=== PATIENT | male | born 1960 | race African-American/Black ===

== ENCOUNTER 2018-05-16 10:03 | Inpatient (IN) | payer OTHER ==
[2018-05-16 11:27] VITALS: BMI 18.9
--- NOTE | 2018-05-16 12:02 | HP ---
CIWA Score - CIWA Score Nausea/Vomitin-Mild Nausea/No Vomiting Muscle Tremors: 2 Anxiety: 2 Agitation: 1-Slight > Activity Paroxysmal Sweats: 2 Orientation: 1-Uncertain about Date Tacttile Disturbances: 1-Very Mild Itch/Numbness Auditory Disturbances: 0-None Visual Disturbances: 0-None Headache: 2-Mild CIWA-Ar Total Score: 12 Admission ROS S - HPI Chief Complaint: ETOH WITHDRAWAL SYMPTOMS. Allergies/Adverse Reactions: Allergies Allergy/AdvReac Type Severity Reaction Status Date / Time ibuprofen [From Motrin] Allergy Severe Hives Verified 05/16/18 11:43 History of Present Illness: PATIENT PRESENTS WITH ETOH WITHDRAWAL SYMPTOMS. PATIENT STATES HE STARTED DRINKING AT AGE 14. DRINKS UP TO 7 PARISH SIZE CANS OF BEER DAILY WITH INTERMITTENT LIQUOR USE. LAST DRINK WAS THIS MORNING. DENIES HX OF SEIZURES. LONGEST PERIOD OF SOBRIETY 6 YEARS. PATIENT ALSO SMOKES CRACK/COCAINE SINCE 1984. SMOKES UP TO 60 DOLLARS DAILY. PATIENT LAST SMOKED THIS MORNING. PMH +HIV AND ASTHMA. NON-COMPLIANT WITH MEDICATION. DENIES SI/HI AND SUICIDE ATTEMPTS. Exam Limitations: No Limitations - Ebola screening Have you traveled outside of the country in the last 21 days: No Have you had contact with anyone from an Ebola affected area: No Have you been sick,other than usual withdrawal symptoms: No Do you have a fever: No - Review of Systems Constitutional: Chills, Night Sweats, Changes in sleep, Unexplained wgt Loss EENT: reports: No Symptoms Reported Respiratory: reports: No Symptoms reported Cardiac: reports: No Symptoms Reported GI: reports: Nausea, Poor Appetite, Poor Fluid Intake, Abdominal cramping : reports: No Symptoms Reported Musculoskeletal: reports: Joint Pain, Muscle Pain Integumentary: reports: Sweating Neuro: reports: Headache, Tremors Endocrine: reports: Unexplained Weight Loss Hematology: reports: No Symptoms Reported Psychiatric: reports: Anxious, Depressed Patient History - Patient Medical History Hx Anemia: No Hx Asthma: Yes Hx Chronic Obstructive Pulmonary Disease (COPD): No Hx Cancer: No Hx Cardiac Disorders: No Hx Congestive Heart Failure: No Hx Hypertension: No Hx Hypercholesterolemia: No Hx Pacemaker: No HX Cerebrovascular Accident: No Hx Seizures: No Hx Dementia: No Hx Diabetes: No Hx Gastrointestinal Disorders: No Hx Liver Disease: No Hx Genitourinary Disorders: No Hx Sexually Transmitted Disorders: No Hx Renal Disease (ESRD): No Hx Thyroid Disease: No Hx Human Immunodeficiency Virus (HIV): Yes (NON-COMPLIANT) Hx Hepatitis C: No Hx Depression: No Hx Suicide Attempt: No Hx Bipolar Disorder: No Hx Schizophrenia: No - Patient Surgical History Past Surgical History: No - PPD History Previous Implant?: Yes Documented Results: Positive w/o proof Implanted On Prior [facility] Admission?: No PPD to be Administered?: No - Smoking Cessation Smoking history: Current every day smoker Have you smoked in the past 12 months: Yes Aproximately how many cigarettes per day: 12 Hx Chewing Tobacco Use: No Initiated information on smoking cessation: Yes 'Breaking Loose' booklet given: 05/16/18 - Substance & Tx. History Hx Alcohol Use: Yes Hx Substance Use: Yes Substance Use Type: Alcohol, Cocaine Hx Substance Use Treatment: No - Substances Abused Alcohol Route: Oral Frequency: Daily Amount used: 8 cans of bud margaritas Age of first use: 14 Date of Last Use: 05/16/18 Crack Route: Smoking Frequency: Daily Amount used: $60 Age of first use: 25 Date of Last Use: 05/16/18 Family Disease History - Family Disease History Family Disease History: CA: Mother (OVARIAN,UTERINE. ALIVE) Admission Physical Exam [facility] - Vital Signs Vital Signs: Vital Signs - 24 hr 05/16/18 11:24 Temperature 98.1 F Pulse Rate 96 H Respiratory 20 Rate Blood Pressure 123/67 - Physical General Appearance: Yes: No Apparent Distress, Appropriately Dressed, Thin, Tremorous, Sweating, Anxious HEENTM: Yes: EOMI, Hearing grossly Normal, Normal ENT Inspection, Normocephalic , Normal Voice, NICOLE, Pharynx Normal Respiratory: Yes: Chest Non-Tender, Lungs Clear, Normal Breath Sounds, No Respiratory Distress, No Accessory Muscle Use Neck: Yes: No masses,lesions,Nodules, Supple Breast: Yes: Breast Exam Deferred Cardiology: Yes: Regular Rhythm, Regular Rate, S1, S2 Abdominal: Yes: Normal Bowel Sounds, Non Tender, Flat, Soft Genitourinary: Yes: Within Normal Limits Back: Yes: Normal Inspection, Muscle Spasm Musculoskeletal: Yes: Within Normal Limits, full range of Motion, Gait Steady, Muscle Pain Extremities: Yes: Normal Capillary Refill, Normal Inspection, Normal Range of Motion, Non-Tender, Tremors Neurological: Yes: 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 II-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 NML intact, Alert, Motor Strength 5/5, Normal Mood /Affect, Numbness, Depressed Affect Integumentary: Yes: Normal Color, Warm, Moist Lymphatic: Yes: Within Normal Limits - Diagnostic (1) Alcohol dependence with uncomplicated withdrawal Current Visit: Yes Status: Acute (2) Weight loss Current Visit: Yes Status: Acute (3) HIV (human immunodeficiency virus infection) Current Visit: Yes Status: Chronic (4) Cocaine dependence Current Visit: Yes Status: Acute Qualifiers: Substance use status: uncomplicated Qualified Code(s): F14.20 - Cocaine dependence, uncomplicated (5) Asthma Current Visit: Yes Status: Acute Qualifiers: Asthma severity: mild Asthma complication type: unspecified Cleared for Admission S - Detox or Rehab S Level of Care: Medically Managed Detox Regimen/Protocol: Librium S Breath Alcohol Content Breath Alcohol Content: 0.097 Urine Drug Screen - Results Drug Screen Negative: No Urine Drug Screen Results: IVORY-Cocaine
[2018-05-16] MEDS ORDERED: MAGNESIUM HYDROX 2400MG/30ML ORAL SUSPENSION 30 ML CUP PO PRN (12:11)
[2018-05-16] MEDS ORDERED: MAGNESIUM CITRATE 300 ML BOTTLE PO PRN (12:11)
[2018-05-16] MEDS ORDERED: LOPERAMIDE HCL 2 MG CAPSULE PO PRN (12:11)
[2018-05-16] MEDS ORDERED: P-EPHED 60MG/TRIPROLIDI 2.5MG TABLET PO PRN (12:11)
[2018-05-16] MEDS ORDERED: MAG HYDROX/AL HYDROX/SIMETH 30 ML UNIT-DOSE CUP PO PRN (12:11)
[2018-05-16] MEDS ORDERED: guaiFENesin/D-METHORPHAN HB 10 ML UNIT-DOSE CUPS PO PRN (12:11)
[2018-05-16] MEDS ORDERED: hydrOXYzine PAMOATE 50 MG CAPSULE (FP) PO PRN (12:11)
[2018-05-16] MEDS ORDERED: MENTHOL/PHENOL 1 EACH UD MM PRN (12:11)
[2018-05-16] MEDS ORDERED: ACETAMINOPHEN 325 MG TABLET (FP) PO PRN (12:11)
[2018-05-16] MEDS ORDERED: chlordiazePOXIDE HCL 25 MG CAPSULE PO PRN (14:00)
[2018-05-16 14:55] LABS: HEMATOCRIT 40.4 % (35.4-49); HEMOGLOBIN 13.6 GM/dL (11.7-16.9); MCH 30.3 pg (25.7-33.7); MCHC 33.6 g/dl (32.0-35.9); MEAN CELL VOLUME 90.1 fl (80-96); MEAN PLT VOLUME 7.4 fl (7.5-11.1); PLATELET COUNT 244 K/MM3 (134-434); RBC 4.49 M/mm3 (4.00-5.60); RDW 13.9 % (11.9-15.9)
[2018-05-16 14:59] LABS: URINE APPEARANCE CLEAR; URINE BILIRUBIN NEGATIVE (<2.0 mg/dL); URINE COLOR YELLOW; URINE GLUCOSE (UA) NEGATIVE (NEGATIVE); URINE KETONE NEGATIVE (NEGATIVE); URINE LEUK ESTERASE NEGATIVE (NEGATIVE); URINE NITRITE NEGATIVE (NEGATIVE)
[2018-05-16 15:00] LABS: ALBUMIN 3.3 g/dl (3.4-5.0); ANION GAP 6 (8-16); BLOOD UREA NITROGEN 9 mg/dL (7-18); CALCIUM 8.9 mg/dL (8.5-10.1); CHLORIDE 106 mmol/L (98-107); CO2 31 mmol/L (21-32); GLUCOSE,RANDOM 88 mg/dL (74-106); POTASSIUM 3.9 mmol/L (3.5-5.1); SODIUM 143 mmol/L (136-145)
[2018-05-16 15:02] LABS: URINE PROTEIN 1+ (NEGATIVE)
[2018-05-16 15:04] LABS: ALK PHOS 114 U/L (45-117); BILIRUBIN,TOTAL 0.3 mg/dL (0.2-1.0); CREATININE 1.1 mg/dL (0.7-1.3); SGOT/AST 27 U/L (15-37); SGPT/ALT 22 U/L (12-78); TOT PROT 7.9 g/dl (6.4-8.2)
--- NOTE | 2018-05-16 15:07 | EKG ---
Test Reason : Blood Pressure : / mmHG Vent. Rate : 084 BPM Atrial Rate : 084 BPM P-R Int : 188 ms QRS Dur : 088 ms QT Int : 372 ms P-R-T Axes : 079 074 074 degrees QTc Int : 439 ms NORMAL SINUS RHYTHM NORMAL ECG NO PREVIOUS ECGS AVAILABLE Confirmed by SIOMARA BINGHAM MD ([id number]) on 05/16/2018 3:07:18 PM Referred By: Confirmed By:SIOMARA BINGHAM MD
[2018-05-16 15:30] LABS: EPI CELLS RARE /HPF (FEW); URINE HYALINE CAST 4 /lpf; URINE MUCUS RARE
[2018-05-16] MEDS: chlordiazePOXIDE HCL 25 MG CAPSULE PO SCH ×2 (17:45→22:08)
[2018-05-16] MEDS ORDERED: MELATONIN 5 MG TABLETS PO PRN (22:00)
[2018-05-16] MEDS: THIAMINE HCL 100 MG TABLET (FP) PO SCH (22:08)
[2018-05-17] MEDS: chlordiazePOXIDE HCL 25 MG CAPSULE PO SCH ×4 (05:18→22:25)
[2018-05-17] MEDS: PRENATAL VITAMINS W/ FOLIC ACID TABLET (FP) PO SCH (10:23)
--- NOTE | 2018-05-17 12:33 | PN ---
[facility] CIWA - CIWA Score Nausea/Vomitin-No Nausea/No Vomiting Muscle Tremors: 3 Anxiety: 3 Agitation: 3 Paroxysmal Sweats: 2 Orientation: 0-Oriented Tacttile Disturbances: 2-Mild Itch/Numbness/Burn Auditory Disturbances: 0-None Visual Disturbances: 2-Mild Sensitivity Headache: 0-None Present CIWA-Ar Total Score: 15 S Progress Note (SOAP) Subjective: Chills, Sweating, Tremors, Anxious. Objective: PATIENT A & O X 3, OBSERVED AMBULATING ON UNIT. NO ACUTE DISTRESS. 05/17/18 12:33 Vital Signs Temperature 98 F 05/17/18 09:40 Pulse Rate 93 H 05/17/18 09:40 Respiratory Rate 20 05/17/18 09:40 Blood Pressure 131/75 05/17/18 09:40 O2 Sat by Pulse Oximetry (%) Laboratory Tests 05/16/18 05/16/18 05/16/18 13:00 13:00 13:00 WBC 4.0 RBC 4.49 Hgb 13.6 Hct 40.4 MCV 90.1 MCH 30.3 MCHC 33.6 RDW 13.9 Plt Count 244 MPV 7.4 L Sodium 143 Potassium 3.9 Chloride 106 Carbon Dioxide 31 Anion Gap 6 L BUN 9 Creatinine 1.1 Creat Clearance w eGFR > 60 Random Glucose 88 Calcium 8.9 Total Bilirubin 0.3 AST 27 ALT 22 Alkaline Phosphatase 114 Total Protein 7.9 Albumin 3.3 L Urine Color Yellow Urine Appearance Clear Urine pH 5.0 Ur Specific [place] 1.020 Urine Protein 1+ H Urine Glucose (UA) Negative Urine Ketones Negative Urine Blood Negative Urine Nitrite Negative Urine Bilirubin Negative Urine Urobilinogen 2.0 Ur Leukocyte Esterase Negative Urine WBC (Auto) 1 Urine RBC (Auto) None seen Ur Epithelial Cells Rare Hyaline Casts 4 Urine Mucus Rare LABS NOTED. RPR RESULT PENDING. 05/17/18 12:35 Assessment: 05/17/18 12:34 WITHDRAWAL SYMPTOMS. Plan: CONTINUE DETOX.
[2018-05-17] MEDS ORDERED: AZITHROMYCIN 250 MG TABLET PO ONE (14:04)
--- NOTE | 2018-05-17 15:35 | PN ---
[facility] Progress Note Note: RESULTS OF CXR DONE TODAY (FOR HISTORY OF POSITIVE PPD) NOTED. PATIENT REPORTS THAT HE COMPLETED FULL COURSE OF ANTIBIOTIC TREATMENT FOR TB IN 1992. PATIENT REPORTS OCCASIONAL COUGH (CHRONIC, ONGOING), BUT DENIES CHEST PAIN AND DIZZINESS. PATIENT REPORTS HISTORY OF ASTHMA (MANAGED WITH MDI PRN), BUT DENIES HISTORY OF ANY OTHER KNOWN RESPIRATORY DISEASE. WHEEZING NOTED ON AUSCULTATION OF UPPER LOBE OF RIGHT LUNG. NO OTHER ADVENTITIOUS LUNG SOUNDS AUSCULTATED. ASSESSMENT WBC LEVEL WNL. RE-CHECK CBC TOMORROW AM. AZITHROMYCIN, 500 X 1 TODAY , FOLLOWED BY 250 MG PO DAILY X 4 DAYS ORDERED PROPHYLACTICALLY FOR POSSIBLE RESPIRATORY INFECTION. PATIENT ADVISED TO FOLLOW-UP WITH [employer] DR. JENNIFER COREY ( [facility], [place], [place] AFTER DISCHARGE FROM DETOX UNIT FOR FURTHER MEDICAL EVALUATION OF CXR RESULTS. PATIENT VERBALIZED UNDERSTANDING OF RECOMMENDATIONS. Helen DELGADO NP.
--- NOTE | 2018-05-17 16:35 | CONSULT ---
[facility] Psychiatric Consult - Data Date of interview: 05/17/18 Admission source: [facility] Identifying data: First admission to [facility] for this 57 y/o AA male seeking detox treatment on for alcohol and cocaine (crack) dependence.Patient is single,a father of two adults,domiciled,unemployed and supported on [facility] benefits. Substance Abuse History: Confirmed by the patient in this session.Details in current [facility] report as follows : Smoking history: Current every day smoker. Have you smoked in the past 12 months: Yes. Aproximately how many cigarettes per day: 12. Hx Chewing Tobacco Use: No. Initiated information on smoking cessation: Yes. 'Breaking Loose' booklet given: 05/16/18. - Substance & Tx. History. Hx Alcohol Use: Yes. Hx Substance Use: Yes. Substance Use Type: Alcohol, Cocaine. Hx Substance Use Treatment: No. - Substances Abused. Alcohol. Route: Oral. Frequency: Daily. Amount used: 8 cans of bud margaritas. Age of first use: 14. Date of Last Use: 05/16/18. Crack. Route: Smoking. Frequency: Daily. Amount used: $60. Age of first use: 25. Date of Last Use: 05/16/18 Medical History: Bronchial asthma and HIV infection since 1994.Prescribed HAART medications : chronically non-adherent. Psychiatric History: Patient denies. Physical/Sexual Abuse/Trauma History: Patient denies. Additional Comment: Urine Drug Screen Results: IVORY-Cocaine.Noted. Mental Status Exam - Mental Status Exam Alert and Oriented to: Time, Place, Person Cognitive Function: Good Patient Appearance: Well Groomed Mood: Hopeful, Euthymic Affect: Appropriate, Normal Range Patient Behavior: Fatigued, Appropriate, Cooperative Speech Pattern: Clear, Appropriate Voice Loudness: Normal Thought Process: Intact, Goal Oriented Thought Disorder: Not Present Hallucinations: Denies Suicidal Ideation: Denies Homicidal Ideation: Denies Insight/Judgement: Poor Sleep: Well Appetite: Good Muscle strength/Tone: Normal Gait/Station: Normal Psychiatric Findings - Problem List ([place] 1, 2,3) (1) Alcohol dependence with uncomplicated withdrawal Current Visit: Yes Status: Acute (2) Cocaine dependence Current Visit: Yes Status: Acute Qualifiers: Substance use status: uncomplicated Qualified Code(s): F14.20 - Cocaine dependence, uncomplicated (3) Nicotine dependence Current Visit: Yes Status: Acute - Initial Treatment Plan Initial Treatment Plan: Psychoeducation.Sleep hygiene.Detoxification.Observation.
[2018-05-17] MEDS: THIAMINE HCL 100 MG TABLET (FP) PO SCH (22:25)
[2018-05-18] MEDS: chlordiazePOXIDE HCL 25 MG CAPSULE PO SCH ×2 (05:51→10:23)
[2018-05-18 09:33] LABS: EOS % 5.4 % (0-4.5); HEMATOCRIT 40.6 % (35.4-49); HEMOGLOBIN 13.4 GM/dL (11.7-16.9); LYMPH % 21.6 % (8-40); MCH 29.9 pg (25.7-33.7); MEAN CELL VOLUME 90.6 fl (80-96); MEAN PLT VOLUME 7.4 fl (7.5-11.1); MONO % 12.6 % (3.8-10.2); NEUT % 59.4 % (42.8-82.8); PLATELET COUNT 211 K/MM3 (134-434); RBC 4.48 M/mm3 (4.00-5.60)
[2018-05-18] MEDS: ALBUTEROL SO4 8 GM HFA INHALER IH PRN ×2 (10:23→14:09)
[2018-05-18] MEDS: AZITHROMYCIN 250 MG TABLET PO SCH (10:23)
[2018-05-18] MEDS: PRENATAL VITAMINS W/ FOLIC ACID TABLET (FP) PO SCH (10:23)
--- NOTE | 2018-05-18 12:00 | PN ---
[facility] CIWA - CIWA Score Nausea/Vomitin-No Nausea/No Vomiting Muscle Tremors: 2 Anxiety: 3 Agitation: 3 Paroxysmal Sweats: 2 Orientation: 2-Disoriented Date<2 days Tacttile Disturbances: 2-Mild Itch/Numbness/Burn Auditory Disturbances: 0-None Visual Disturbances: 0-None Headache: 0-None Present CIWA-Ar Total Score: 14 BHS Progress Note (SOAP) Subjective: Body Aches, Anxious, Sweating. Objective: PATIENT A & O X 3, OBSERVED AMBULATING ON UNIT UNASSISTED. NO ACUTE DISTRESS. PATIENT DENIES CHEST PAIN ,SOB, AND DIZZINESS. PATIENT DENIES ANY COUGHING THUS FAR TODAY. 05/18/18 11:57 Vital Signs Temperature 98.1 F 05/18/18 09:04 Pulse Rate 89 05/18/18 09:04 Respiratory Rate 18 05/18/18 09:04 Blood Pressure 116/68 05/18/18 09:04 O2 Sat by Pulse Oximetry (%) Laboratory Tests 05/16/18 05/16/18 05/16/18 13:00 13:00 13:00 WBC 4.0 RBC 4.49 Hgb 13.6 Hct 40.4 MCV 90.1 MCH 30.3 MCHC 33.6 RDW 13.9 Plt Count 244 MPV 7.4 L Absolute Neuts (auto) Neutrophils % Lymphocytes % Monocytes % Eosinophils % Basophils % Nucleated RBC % Sodium 143 Potassium 3.9 Chloride 106 Carbon Dioxide 31 Anion Gap 6 L BUN 9 Creatinine 1.1 Creat Clearance w eGFR > 60 Random Glucose 88 Calcium 8.9 Total Bilirubin 0.3 AST 27 ALT 22 Alkaline Phosphatase 114 Total Protein 7.9 Albumin 3.3 L Urine Color Yellow Urine Appearance Clear Urine pH 5.0 Ur Specific [place] 1.020 Urine Protein 1+ H Urine Glucose (UA) Negative Urine Ketones Negative Urine Blood Negative Urine Nitrite Negative Urine Bilirubin Negative Urine Urobilinogen 2.0 Ur Leukocyte Esterase Negative Urine WBC (Auto) 1 Urine RBC (Auto) None seen Ur Epithelial Cells Rare Hyaline Casts 4 Urine Mucus Rare 05/18/18 07:00 WBC 4.0 RBC 4.48 Hgb 13.4 Hct 40.6 MCV 90.6 MCH 29.9 MCHC 33.0 RDW 14.0 Plt Count 211 MPV 7.4 L Absolute Neuts (auto) 2.4 Neutrophils % 59.4 Lymphocytes % 21.6 Monocytes % 12.6 H Eosinophils % 5.4 H Basophils % 1.0 Nucleated RBC % 0 Sodium Potassium Chloride Carbon Dioxide Anion Gap BUN Creatinine Creat Clearance w eGFR Random Glucose Calcium Total Bilirubin AST ALT Alkaline Phosphatase Total Protein Albumin Urine Color Urine Appearance Urine pH Ur Specific [place] Urine Protein Urine Glucose (UA) Urine Ketones Urine Blood Urine Nitrite Urine Bilirubin Urine Urobilinogen Ur Leukocyte Esterase Urine WBC (Auto) Urine RBC (Auto) Ur Epithelial Cells Hyaline Casts Urine Mucus LABS NOTED. RESULTS OF REPEAT CBC (WBC) NOTED. 05/18/18 11:59 Assessment: 05/18/18 11:58 WITHDRAWAL SYMPTOMS. Plan: CONTINUE DETOX. INCREASE DAILY PO FLUID INTAKE. CONTINUE AZITHROMYCIN.
[2018-05-18] MEDS: chlordiazePOXIDE 5 MG CAPSULE PO SCH ×2 (17:35→22:07)
[2018-05-18] MEDS: THIAMINE HCL 100 MG TABLET (FP) PO SCH (22:08)
[2018-05-18] MEDS: HYDROCORTISONE 0.5% TOPICAL CREAM 30 GM TUBE TP SCH (22:08)
[2018-05-19] MEDS: chlordiazePOXIDE 5 MG CAPSULE PO SCH ×2 (05:50→10:35)
[2018-05-19] MEDS: PRENATAL VITAMINS W/ FOLIC ACID TABLET (FP) PO SCH (10:35)
[2018-05-19] MEDS: HYDROCORTISONE 0.5% TOPICAL CREAM 30 GM TUBE TP SCH ×2 (10:36→22:17)
[2018-05-19] MEDS: AZITHROMYCIN 250 MG TABLET PO SCH (10:36)
--- NOTE | 2018-05-19 12:15 | PN ---
[facility] Progress Note (SOAP) Subjective: Sweating, Body Aches. Objective: PATIENT A & O X 3, OBSERVED AMBULATING ON UNIT. NO ACUTE DISTRESS. PATIENT DENIES CHEST PAIN, SOB, AND DIZZINESS. MILD WHEEZING NOTED ON AUSCULTATION OF LUNGS. 05/19/18 12:15 Vital Signs Temperature 97.6 F 05/19/18 09:49 Pulse Rate 66 05/19/18 09:49 Respiratory Rate 18 05/19/18 09:49 Blood Pressure 115/74 05/19/18 09:49 O2 Sat by Pulse Oximetry (%) Laboratory Tests 05/16/18 05/16/18 05/16/18 13:00 13:00 13:00 WBC 4.0 RBC 4.49 Hgb 13.6 Hct 40.4 MCV 90.1 MCH 30.3 MCHC 33.6 RDW 13.9 Plt Count 244 MPV 7.4 L Absolute Neuts (auto) Neutrophils % Lymphocytes % Monocytes % Eosinophils % Basophils % Nucleated RBC % Sodium 143 Potassium 3.9 Chloride 106 Carbon Dioxide 31 Anion Gap 6 L BUN 9 Creatinine 1.1 Creat Clearance w eGFR > 60 Random Glucose 88 Calcium 8.9 Total Bilirubin 0.3 AST 27 ALT 22 Alkaline Phosphatase 114 Total Protein 7.9 Albumin 3.3 L Urine Color Urine Appearance Urine pH Ur Specific [place] Urine Protein Urine Glucose (UA) Urine Ketones Urine Blood Urine Nitrite Urine Bilirubin Urine Urobilinogen Ur Leukocyte Esterase Urine WBC (Auto) Urine RBC (Auto) Ur Epithelial Cells Hyaline Casts Urine Mucus RPR Titer Nonreactive 05/16/18 05/18/18 13:00 07:00 WBC 4.0 RBC 4.48 Hgb 13.4 Hct 40.6 MCV 90.6 MCH 29.9 MCHC 33.0 RDW 14.0 Plt Count 211 MPV 7.4 L Absolute Neuts (auto) 2.4 Neutrophils % 59.4 Lymphocytes % 21.6 Monocytes % 12.6 H Eosinophils % 5.4 H Basophils % 1.0 Nucleated RBC % 0 Sodium Potassium Chloride Carbon Dioxide Anion Gap BUN Creatinine Creat Clearance w eGFR Random Glucose Calcium Total Bilirubin AST ALT Alkaline Phosphatase Total Protein Albumin Urine Color Yellow Urine Appearance Clear Urine pH 5.0 Ur Specific [place] 1.020 Urine Protein 1+ H Urine Glucose (UA) Negative Urine Ketones Negative Urine Blood Negative Urine Nitrite Negative Urine Bilirubin Negative Urine Urobilinogen 2.0 Ur Leukocyte Esterase Negative Urine WBC (Auto) 1 Urine RBC (Auto) None seen Ur Epithelial Cells Rare Hyaline Casts 4 Urine Mucus Rare RPR Titer LABS NOTED. 05/19/18 12:17 Assessment: 05/19/18 12:15 WITHDRAWAL SYMPTOMS. Plan: CONTINUE DETOX. PATIENT SCHEDULED FOR D/C TOMORROW. PATIENT REPORTS THAT HE HAS SCHEDULED AN APPOINTMENT WITH [facility] DR. COREY ([facility]) FOR TOMORROW AM AFTER DISCHARGE FROM DETOX.
[2018-05-19] MEDS: CLOTRIMAZOLE/BETAMET DIPROP 15 GM TUBE TP SCH ×2 (13:32→22:16)
[2018-05-19] MEDS: chlordiazePOXIDE HCL 10 MG CAPSULE PO SCH ×2 (17:47→23:30)
[2018-05-19] MEDS: ALBUTEROL SO4 8 GM HFA INHALER IH PRN (19:41)
[2018-05-19] MEDS: THIAMINE HCL 100 MG TABLET (FP) PO SCH (22:16)
[2018-05-20] MEDS: chlordiazePOXIDE HCL 10 MG CAPSULE PO SCH (05:55)
[2018-05-20 06:41] VITALS: BP 106/68; PULSE 89; TEMP 97
[2018-05-20] MEDS: HYDROCORTISONE 0.5% TOPICAL CREAM 30 GM TUBE TP SCH (09:32)
[2018-05-20] MEDS: PRENATAL VITAMINS W/ FOLIC ACID TABLET (FP) PO SCH (09:32)
[2018-05-20] MEDS: AZITHROMYCIN 250 MG TABLET PO SCH (09:32)
--- NOTE | 2018-05-20 16:53 | PN ---
S Progress Note (SOAP) Subjective: Patient denies current Detox symptoms and reports that he feels well overall. Objective: PATIENT A & O X 3, OBSERVED AMBULATING ON UNIT. NO ACUTE DISTRESS. 05/20/18 16:52 Vital Signs Temperature 97.0 F L 05/20/18 06:40 Pulse Rate 89 05/20/18 06:40 Respiratory Rate 18 05/20/18 06:40 Blood Pressure 106/68 05/20/18 06:40 O2 Sat by Pulse Oximetry (%) Laboratory Tests 05/16/18 05/16/18 05/16/18 13:00 13:00 13:00 WBC 4.0 RBC 4.49 Hgb 13.6 Hct 40.4 MCV 90.1 MCH 30.3 MCHC 33.6 RDW 13.9 Plt Count 244 MPV 7.4 L Absolute Neuts (auto) Neutrophils % Lymphocytes % Monocytes % Eosinophils % Basophils % Nucleated RBC % Sodium 143 Potassium 3.9 Chloride 106 Carbon Dioxide 31 Anion Gap 6 L BUN 9 Creatinine 1.1 Creat Clearance w eGFR > 60 Random Glucose 88 Calcium 8.9 Total Bilirubin 0.3 AST 27 ALT 22 Alkaline Phosphatase 114 Total Protein 7.9 Albumin 3.3 L Urine Color Urine Appearance Urine pH Ur Specific [place] Urine Protein Urine Glucose (UA) Urine Ketones Urine Blood Urine Nitrite Urine Bilirubin Urine Urobilinogen Ur Leukocyte Esterase Urine WBC (Auto) Urine RBC (Auto) Ur Epithelial Cells Hyaline Casts Urine Mucus RPR Titer Nonreactive 05/16/18 05/18/18 13:00 07:00 WBC 4.0 RBC 4.48 Hgb 13.4 Hct 40.6 MCV 90.6 MCH 29.9 MCHC 33.0 RDW 14.0 Plt Count 211 MPV 7.4 L Absolute Neuts (auto) 2.4 Neutrophils % 59.4 Lymphocytes % 21.6 Monocytes % 12.6 H Eosinophils % 5.4 H Basophils % 1.0 Nucleated RBC % 0 Sodium Potassium Chloride Carbon Dioxide Anion Gap BUN Creatinine Creat Clearance w eGFR Random Glucose Calcium Total Bilirubin AST ALT Alkaline Phosphatase Total Protein Albumin Urine Color Yellow Urine Appearance Clear Urine pH 5.0 Ur Specific [place] 1.020 Urine Protein 1+ H Urine Glucose (UA) Negative Urine Ketones Negative Urine Blood Negative Urine Nitrite Negative Urine Bilirubin Negative Urine Urobilinogen 2.0 Ur Leukocyte Esterase Negative Urine WBC (Auto) 1 Urine RBC (Auto) None seen Ur Epithelial Cells Rare Hyaline Casts 4 Urine Mucus Rare RPR Titer LABS NOTED. Assessment: 05/20/18 16:52 COMPLETION OF DETOX REGIMEN. Plan: PATIENT SCHEDULED FOR DISCHARGE FROM DETOX UNIT TODAY.
--- NOTE | 2018-05-20 16:59 | DS ---
[facility] Detox Discharge Summary Admission Date: 05/16/18 Discharge Date: 05/20/18 - History Present History: Alcohol Dependence, Cocaine Dependence Additional Comments: PATIENT GOING TO SEE [facility] DR. COREY ([facility] FOR MEDICAL EVALUATION AND FOR HISTORY OF CXR ABNORMALITIES NOTED WHILE ADMITTED FOR DETOX. COPIES OF CXR REPORT AND OF ALL LABS DRAWN WHILE ADMITTED FOR DETOX GIVEN TO PATIENT AT TIME OF DISCHARGE FROM DETOX UNIT. PRESCRIPTION FOR REMAINDER OF ANTIBIOTIC (AZITHROMYCIN) STARTED DURING DETOX PROPHYLAXIS FOR POSSIBLE URI SENT TO PATIENT'S PHARMAC[facility] ([facility] FOR FOLLOW-UP CARE. PATIENT REPORTS THAT HE WILL CONTACT [facility] AD[facility]. IN THE NEXT FEW DAYS TO INQUIRE ABOUT ADMISSION. PATIENT WAS DISCHARGED FROM DETOX UNIT IN STABLE MEDICAL CONDITION. Pertinent Past History: Asthma, HIV, Nicotine Dependence, Weight Loss. - Physical Exam Results Vital Signs: Vital Signs Temperature 97.0 F L 05/20/18 06:40 Pulse Rate 89 05/20/18 06:40 Respiratory Rate 18 05/20/18 06:40 Blood Pressure 106/68 05/20/18 06:40 O2 Sat by Pulse Oximetry (%) Pertinent Admission Physical Exam Findings: WITHDRAWAL SYMPTOMS. Laboratory Tests 05/16/18 05/16/18 05/16/18 13:00 13:00 13:00 WBC 4.0 RBC 4.49 Hgb 13.6 Hct 40.4 MCV 90.1 MCH 30.3 MCHC 33.6 RDW 13.9 Plt Count 244 MPV 7.4 L Absolute Neuts (auto) Neutrophils % Lymphocytes % Monocytes % Eosinophils % Basophils % Nucleated RBC % Sodium 143 Potassium 3.9 Chloride 106 Carbon Dioxide 31 Anion Gap 6 L BUN 9 Creatinine 1.1 Creat Clearance w eGFR > 60 Random Glucose 88 Calcium 8.9 Total Bilirubin 0.3 AST 27 ALT 22 Alkaline Phosphatase 114 Total Protein 7.9 Albumin 3.3 L Urine Color Urine Appearance Urine pH Ur Specific [place] Urine Protein Urine Glucose (UA) Urine Ketones Urine Blood Urine Nitrite Urine Bilirubin Urine Urobilinogen Ur Leukocyte Esterase Urine WBC (Auto) Urine RBC (Auto) Ur Epithelial Cells Hyaline Casts Urine Mucus RPR Titer Nonreactive 05/16/18 05/18/18 13:00 07:00 WBC 4.0 RBC 4.48 Hgb 13.4 Hct 40.6 MCV 90.6 MCH 29.9 MCHC 33.0 RDW 14.0 Plt Count 211 MPV 7.4 L Absolute Neuts (auto) 2.4 Neutrophils % 59.4 Lymphocytes % 21.6 Monocytes % 12.6 H Eosinophils % 5.4 H Basophils % 1.0 Nucleated RBC % 0 Sodium Potassium Chloride Carbon Dioxide Anion Gap BUN Creatinine Creat Clearance w eGFR Random Glucose Calcium Total Bilirubin AST ALT Alkaline Phosphatase Total Protein Albumin Urine Color Yellow Urine Appearance Clear Urine pH 5.0 Ur Specific [place] 1.020 Urine Protein 1+ H Urine Glucose (UA) Negative Urine Ketones Negative Urine Blood Negative Urine Nitrite Negative Urine Bilirubin Negative Urine Urobilinogen 2.0 Ur Leukocyte Esterase Negative Urine WBC (Auto) 1 Urine RBC (Auto) None seen Ur Epithelial Cells Rare Hyaline Casts 4 Urine Mucus Rare RPR Titer LABS NOTED. - Treatment Hospital Course: Detox Protocol Followed, Detoxed Safely, Responded well, Discharged Condition Good, Rehab Referral Accepted Patient has Accepted a Rehab Referral to: [facility] ([place] . - Medication Discharge Medications: Ambulatory Orders Elviteg/Cob/Emtri/Tenof Alafen [Genvoya Tablet] 1 each PO DAILY 05/16/18 Azithromycin 250 mg PO DAILY 2 Days #2 tablet 05/19/18 Albuterol Sulfate Inhaler - [Ventolin Hfa Inhaler -] 2 inh PO Q4H PRN #1 inhaler 05/20/18 - Diagnosis (1) Alcohol dependence with uncomplicated withdrawal Status: Acute (2) Asthma Status: Chronic Qualifiers: Asthma severity: mild Asthma persistence: intermittent Asthma complication type: uncomplicated Qualified Code(s): J45.20 - Mild intermittent asthma, uncomplicated (3) Cocaine dependence Status: Acute Qualifiers: Substance use status: uncomplicated Qualified Code(s): F14.20 - Cocaine dependence, uncomplicated (4) Weight loss Status: Acute (5) HIV (human immunodeficiency virus infection) Status: Chronic (6) Nicotine dependence Status: Acute Qualifiers: Nicotine product type: cigarettes Substance use status: uncomplicated Qualified Code(s): F17.210 - Nicotine dependence, cigarettes, uncomplicated - AMA Did Patient Leave Against Medical Advice: No
== END 2018-05-20 09:33 | disposition home or self-care (01) | DRG 897 ==
LOC: YASAS 10:03 → Y3N 12:43
PROVIDERS: ADMIT Surgery; ATTEND Surgery
PROC: HZ2ZZZZ Detoxification Services for Substance Abuse Treatment (ICD-10-PCS; principal; 2018-05-16)
DX: F10.230 Alcohol dependence with withdrawal, uncomplicated (principal); F14.20 Cocaine dependence, uncomplicated; Z68.1 Body mass index [BMI] 19.9 or less, adult; F17.210 Nicotine dependence, cigarettes, uncomplicated; J45.20 Mild intermittent asthma, uncomplicated; Z21 Asymptomatic human immunodeficiency virus [HIV] infection status; R63.4 Abnormal weight loss; R06.2 Wheezing
CPT/HCPCS: 36415; 71046-TC-FY; 80053; 81003; 81015; 85025; 85027; 86593; 93005; 93010